=== PATIENT | female | born 1955 | race African-American/Black ===

== ENCOUNTER 2018-09-18 11:46 | Emergency (ER) | payer MEDICAID ==
[~2018-09-18] VITALS: Ht 167.6 cm; Wt 80.0 kg
[2018-09-18 12:25] VITALS: BP 170/86
== END 2018-09-18 17:43 | disposition home or self-care (01) ==
LOC: ER 13:05
DX: G56.21 Lesion of ulnar nerve, right upper limb (principal)
CPT/HCPCS: 99282